=== PATIENT | female | born 1975 | race Caucasian/White ===

== ENCOUNTER 2016-11-18 11:46 | Outpatient (CLI) | payer OTHER ==
[2016-11-20 14:07] LABS: HEPATITIS B CORE AB, TOTAL Negative (Negative); HEPATITIS C VIRUS AB <0.1 s/co ratio (0.0-0.9)
[2016-11-21 04:06] LABS: HEPATITIS Be AG Negative (Negative)
[2016-11-22 13:07] LABS: HEPATITIS Be AB Negative (Negative)
== END 2016-11-18 18:57 | disposition home or self-care (01) ==
LOC: SLB 11:46
PROVIDERS: ATTEND Internal Medicine Hospice and Palliative Medicine
DX: R17 Unspecified jaundice (principal)
CPT/HCPCS: 36415; 86704; 86707; 86803; 87350

== ENCOUNTER 2017-03-29 11:19 | Emergency (ER) | payer OTHER ==
[~2017-03-29] VITALS: Ht 170.2 cm; Wt 77.1 kg
[2017-03-29 11:27] VITALS: BP_SYST 151
[2017-03-29] MEDS ORDERED: LIDOCAINE 1% 10 MG/ML, 20 ML MDV IJ ONE (11:45)
[2017-03-29] MEDS ORDERED: DIPH-TET-PERTUS Vaccine 0.5 ML VIAL (ADACEL) IM ONE (11:45)
[2017-03-29] MEDS ORDERED: BACITRACIN 1 GM OINT TP ONE (11:45)
[2017-03-29 13:17] VITALS: BP_SYST 148
== END 2017-03-29 13:17 | disposition home or self-care (01) ==
LOC: SED 11:19
DX: S61.411A Laceration without foreign body of right hand, initial encounter (principal); X58.XXXA Exposure to other specified factors, initial encounter; Y93.G1 Activity, food preparation and clean up; Y92.89 Other specified places as the place of occurrence of the external cause; Y99.8 Other external cause status
CPT/HCPCS: 12002; 90471; 90715; 99283; J2001

== ENCOUNTER 2017-09-01 08:34 | Outpatient (CLI) | payer OTHER ==
[2017-09-01 09:21] LABS: BASOPHILS # (AUTO) 0.1 K/uL (0.0-0.2); EOSINOPHILS # (AUTO) 0.3 K/uL (0.0-0.4); EOSINOPHILS % (AUTO) 3.2 % (0.0-4.0); HEMATOCRIT 40.2 % (36-48); HEMOGLOBIN 13.1 g/dL (12.0-16.0); LYMPHOCYTES # (AUTO) 3.1 K/uL (1.0-5.5); LYMPHOCYTES % (AUTO) 39.2 % (20.5-51.5); MEAN CORPUSCULAR HEMOGLOBIN 29 pg (27-31); MEAN CORPUSCULAR HGB CONC 33 % (32-36); MEAN CORPUSCULAR VOLUME 90 fL (79.0-98.0); MONOCYTES # (AUTO) 0.6 K/uL (0.0-1.0); MONOCYTES % (AUTO) 7.6 % (1.7-9.3); NEUTROPHILS # (AUTO) 3.8 K/uL (1.8-7.7); PLATELET COUNT (AUTO) 286 K/uL (130-430); RED BLOOD CELL COUNT(AUTO) 4.46 MIL/uL (4.2-6.2); RED CELL DISTRIBUTION WIDTH 11.8 % (9.0-15.0); WHITE BLOOD COUNT (AUTO) 7.9 K/uL (4.8-10.8)
[2017-09-01 09:39] LABS: ALBUMIN 3.7 g/dL (3.4-4.8); CALCIUM 8.6 mg/dL (8.4-11.0); CREATININE 0.88 mg/dL (0.55-1.30); POTASSIUM 3.9 mmol/L (3.5-5.1); THYROID STIMULATING HORMONE 1.46 uIu/mL (0.34-4.82); TOTAL BILIRUBIN 0.5 mg/dL (0.0-1.0)
[2017-09-02 22:13] LABS: HEMOGLOBIN A1C 5.5 % (4.8-5.6)
== END 2017-09-01 19:41 | disposition home or self-care (01) ==
LOC: SLB 08:34
PROVIDERS: ATTEND Internal Medicine
DX: Z00.01 Encounter for general adult medical examination with abnormal findings (principal); R79.89 Other specified abnormal findings of blood chemistry
CPT/HCPCS: 36415; 80053; 80061; 82306; 83036; 84443-TC; 85025

== ENCOUNTER 2020-06-29 13:16 | Emergency (ER) | payer OTHER ==
[~2020-06-29] VITALS: Ht 170.2 cm; Wt 81.6 kg
[2020-06-29 13:16] VITALS: BP_SYST 124
--- NOTE | 2020-06-29 13:16 | NUR ---
BROUGHT BACK TO BED #8 AND TRIAGED. REPORT GIVEN TO GOLDY
--- NOTE | 2020-06-29 13:18 | NUR ---
Patient arrived in the ED c/o dog bite on the right hand today. Denied any chest pain or shortness of breath. Denied any fevers, chills, nausea or vomiting. Patient is alert and oriented x4, respirations even and unlabored, speaking in full sentences, and ambulating with a steady gait. VSS, pain level 8/10. Informed of the approximate wait time. Instructed to notify ED staff for any changes in condition or worsening of symptoms while waiting to be seen by an ED provider. Patient verbalized understanding.
--- NOTE | 2020-06-29 13:20 | NUR ---
ER Dr. Glass at bedside examining patient.
[2020-06-29] MEDS ORDERED: LIDOCAINE 1% 10 MG/ML, 20 ML MDV INJ ONE (13:30)
[2020-06-29] MEDS ORDERED: BACITRACIN 1 GM OINT TP ONE (13:30)
--- NOTE | 2020-06-29 13:56 | NUR ---
X-ray done at bedside as ordered by Dr. Glass. Patient tolerated the procedure well.
[2020-06-29 14:11] VITALS: BP_SYST 124
--- NOTE | 2020-06-29 14:12 | NUR ---
Patient given written and verbal discharge instructions and verbalizes understanding. ER MD discussed with patient the results and treatment provided. Patient in stable condition. ID arm band removed. IV catheter removed intact and dressing applied, no active bleeding. Rx of Augmentin given. Patient educated on pain management and to follow up with PMD. Pain Scale 0/10. Opportunity for questions provided and answered. Medication side effect fact sheet provided.
== END 2020-06-29 14:12 | disposition home or self-care (01) ==
LOC: SED 13:16
DX: S61.411A Laceration without foreign body of right hand, initial encounter (principal); W54.0XXA Bitten by dog, initial encounter; Y93.89 Activity, other specified; Y92.89 Other specified places as the place of occurrence of the external cause; Y99.8 Other external cause status
CPT/HCPCS: 99283

== ENCOUNTER 2020-10-06 07:34 | Outpatient (CLI) | payer OTHER ==
[2020-10-06 08:56] LABS: BASOPHILS # (AUTO) 0.1 K/uL (0.0-0.2); EOSINOPHILS # (AUTO) 0.2 K/uL (0.0-0.4); EOSINOPHILS % (AUTO) 3.3 % (0.0-4.0); HEMOGLOBIN 13.4 g/dL (12.0-16.0); LYMPHOCYTES # (AUTO) 2.5 K/uL (1.0-5.5); LYMPHOCYTES % (AUTO) 36.3 % (20.5-51.5); MEAN CORPUSCULAR HEMOGLOBIN 30 pg (27-31); MEAN CORPUSCULAR HGB CONC 34 % (32-36); MEAN CORPUSCULAR VOLUME 89 fL (79.0-98.0); MONOCYTES # (AUTO) 0.6 K/uL (0.0-1.0); MONOCYTES % (AUTO) 8.9 % (1.7-9.3); NEUTROPHILS # (AUTO) 3.5 K/uL (1.8-7.7); NEUTROPHILS % (AUTO) 50.5 % (40.0-70.0); PLATELET COUNT (AUTO) 268 K/uL (130-430)
[2020-10-06 09:31] LABS: ALBUMIN 3.7 g/dL (3.4-4.8); CREATININE 0.9 mg/dL (0.55-1.30); POTASSIUM 4.7 mmol/L (3.5-5.1); TOTAL BILIRUBIN 0.7 mg/dL (0.0-1.0)
[2020-10-07 04:07] LABS: HEMOGLOBIN A1C 5.6 % (4.8-5.6)
[2020-10-07 05:13] LABS: HEPATITIS C VIRUS AB <0.1 s/co ratio (0.0-0.9)
== END 2020-10-06 20:38 | disposition home or self-care (01) ==
LOC: SLB 07:34
PROVIDERS: ATTEND Internal Medicine
DX: Z13.1 Encounter for screening for diabetes mellitus (principal); Z11.59 Encounter for screening for other viral diseases; J30.9 Allergic rhinitis, unspecified; J45.20 Mild intermittent asthma, uncomplicated; Z80.0 Family history of malignant neoplasm of digestive organs
CPT/HCPCS: 36415; 80053; 80061; 82306; 83036; 85025; 86803

== ENCOUNTER 2021-09-08 07:46 | Outpatient (CLI) | payer OTHER ==
[2021-09-08 08:51] LABS: BASOPHILS # (AUTO) 0.1 K/uL (0.0-0.2); BASOPHILS % (AUTO) 1.1 % (0.0-2.0); EOSINOPHILS # (AUTO) 0.2 K/uL (0.0-0.4); EOSINOPHILS % (AUTO) 3.1 % (0.0-4.0); HEMATOCRIT 38.9 % (36-48); HEMOGLOBIN 13.2 g/dL (12.0-16.0); LYMPHOCYTES # (AUTO) 2.5 K/uL (1.0-5.5); LYMPHOCYTES % (AUTO) 36.9 % (20.5-51.5); MEAN CORPUSCULAR HEMOGLOBIN 30 pg (27-31); MEAN CORPUSCULAR HGB CONC 34 % (32-36); MEAN CORPUSCULAR VOLUME 88 fL (79.0-98.0); MONOCYTES # (AUTO) 0.6 K/uL (0.0-1.0); NEUTROPHILS # (AUTO) 3.3 K/uL (1.8-7.7); NEUTROPHILS % (AUTO) 49.9 % (40.0-70.0); PLATELET COUNT (AUTO) 287 K/uL (130-430); RED BLOOD CELL COUNT(AUTO) 4.41 MIL/uL (4.2-6.2); RED CELL DISTRIBUTION WIDTH 12.9 % (9.0-15.0); WHITE BLOOD COUNT (AUTO) 6.7 K/uL (4.8-10.8)
[2021-09-08 09:18] LABS: ALBUMIN 3.6 g/dL (3.4-4.8); CALCIUM 8.5 mg/dL (8.4-11.0); CREATININE 0.92 mg/dL (0.55-1.30); POTASSIUM 4.5 mmol/L (3.5-5.1); THYROID STIMULATING HORMONE 1.77 uIu/mL (0.36-3.74); TOTAL BILIRUBIN 0.4 mg/dL (0.0-1.0)
== END 2021-09-08 21:17 | disposition home or self-care (01) ==
LOC: SLB 07:46
PROVIDERS: ATTEND Internal Medicine
DX: R63.5 Abnormal weight gain (principal); Z91.89 Other specified personal risk factors, not elsewhere classified
CPT/HCPCS: 36415; 80053; 80061; 83036; 84439; 84443; 85025

== ENCOUNTER 2022-02-18 06:23 | Day surgery (SDC) | payer OTHER ==
[~2022-02-18] VITALS: Ht 170.2 cm; Wt 81.6 kg
[2022-02-18 07:21] LABS: HCG,QUAL RESULT NEGATIVE (NEGATIVE)
[2022-02-18] MEDS: MEPERIDINE 100 MG INJ. 100 MG/ML VIAL ONE ×3 (09:01→09:08)
[2022-02-18] MEDS: MIDAZOLAM HCL 5 MG/5 ML VIAL ONE ×4 (09:01→09:11)
[2022-02-18] MEDS ORDERED: DIPHENHYDRAMINE INJ 50 MG/ML VIAL ONE (09:10)
[2022-02-18 14:40] VITALS: BP_SYST 128
== END 2022-02-18 11:05 | disposition home or self-care (01) ==
LOC: SDS 06:23 → SMU 06:27 → SDS 11:05
PROVIDERS: ATTEND Internal Medicine Gastroenterology
DX: R13.10 Dysphagia, unspecified (principal); K21.00 Gastro-esophageal reflux disease with esophagitis, without bleeding; K29.70 Gastritis, unspecified, without bleeding; Z80.0 Family history of malignant neoplasm of digestive organs; Z79.899 Other long term (current) drug therapy; Z20.822 Contact with and (suspected) exposure to COVID-19
CPT/HCPCS: 36415 ×2; 43239; 43248; 84703; 87081; 87426; 88305; 88312; 88313; C1769; G0378; J2175; J2250; U0003; J1200